=== PATIENT | female | born 1935 | race Caucasian/White ===

== ENCOUNTER 2018-11-02 10:26 | Inpatient (IN) | payer OTHER ==
[~2018-11-02] VITALS: Ht 170.2 cm; Wt 56.2 kg
[2018-11-02] MEDS ORDERED: SODIUM CHLORIDE FLUSH 10ML SYR IVF ONE (11:00)
[2018-11-02 11:11] LABS: BASOPHILS # (AUTO) 0.02 x10^3/uL (0-0.1); BASOPHILS % (AUTO) 1 % (0-1); EOSINOPHILS # (AUTO) 0.14 x10^3/uL (0-0.4); EOSINOPHILS % (AUTO) 3 % (1-7); LYMPHOCYTES # (AUTO) 1.19 x10^3/uL (1-3.4); LYMPHOCYTES % (AUTO) 23 % (22-44); MD NO; MEAN CORPUSCULAR HEMOGLOBIN 29.6 pg (27.0-34.8); MEAN CORPUSCULAR HGB CONC 32.9 g/dL (32.4-35.8); MEAN CORPUSCULAR VOLUME 90.1 fL (80-100); MEAN PLATELET VOLUME 9.7 fL (7.4-10.4); MONOCYTES # (AUTO) 0.33 x10^3/uL (0.2-0.8); MONOCYTES % (AUTO) 6 % (2-9); NEUTROPHILS # (AUTO) 3.49 x10^3/uL (1.8-6.8); NEUTROPHILS % (AUTO) 68 % (42-75); PLATELET COUNT 161 x10^3/uL (130-400); RED CELL DISTRIBUTION WIDTH 15.6 % (9.6-15.2)
[2018-11-02 11:14] LABS: ALANINE AMINOTRANSFERASE 9 U/L (12-78); ALBUMIN 2.8 g/dL (3.4-5.0); CALCIUM 7.9 mg/dL (8.5-10.1)
[2018-11-02 11:19] LABS: ALKALINE PHOSPHATASE 81 U/L (45-117); ANION GAP 5 mmol/L (5-15); BILIRUBIN,TOTAL 0.3 mg/dL (0.2-1.0); CHLORIDE 113 mmol/L (98-107); CREATININE 0.94 mg/dL (0.55-1.02); TOTAL PROTEIN 6.1 g/dL (6.4-8.2); TROPONIN I < 0.015 ng/mL (0.000-0.045)
[2018-11-02 12:34] LABS: MICROSCOPIC AUTO
[2018-11-02 12:35] LABS: CULTURE INDICATED? YES
[2018-11-02] MEDS ORDERED: SODIUM CHLORIDE FLUSH 10ML SYR IVF PRN (13:00)
[2018-11-02] MEDS ORDERED: CEFTRIAXONE PMX 1GM/50ML 50 ML IV ONE (13:00)
[2018-11-02] MEDS ORDERED: CEFTRIAXONE PMX 1GM/50ML 50 ML ONE (13:10)
[2018-11-02 14:19] VITALS: BP 110/67
[2018-11-02] MEDS ORDERED: hydrALAzine 20 MG/ML, 1ML IVPush PRN (15:30)
[2018-11-02] MEDS ORDERED: ACETAMINOPHEN 325 MG TABLET PO PRN (15:30)
[2018-11-02] MEDS ORDERED: morphine SULFATE 10 MG/ML, 1ML IVPush PRN (15:30)
[2018-11-02] MEDS ORDERED: ONDANSETRON 2MG/ML, 2ML IVPush PRN (15:30)
[2018-11-02] MEDS: HEPARIN 5,000 UNITS/ML, 1ML SQ SCH ×2 (15:30→23:30)
[2018-11-02] MEDS ORDERED: POLYETHYLENE GLYCOL 17 GM PACKET PO PRN (15:30)
[2018-11-02] MEDS ORDERED: SODIUM CHLORIDE 0.9% 1,000 ML IV SCH (15:30)
[2018-11-02] MEDS ORDERED: QUET25TA7 PO (16:23)
[2018-11-02] MEDS ORDERED: FLUO20CA8 PO (16:23)
[2018-11-02] MEDS ORDERED: QUET50TA PO (16:23)
[2018-11-02] MEDS ORDERED: DOCU-186 PO (16:23)
[2018-11-02] MEDS ORDERED: HALO0.5T PO ×2 (16:23)
[2018-11-02] MEDS ORDERED: ASPI-515 PO (16:23)
[2018-11-02] MEDS ORDERED: HALOPERIDOL 0.5 MG TABLET PO PRN (16:30)
[2018-11-02] MEDS ORDERED: HALOPERIDOL 0.5 MG TABLET PO SCH (16:30)
[2018-11-02] MEDS ORDERED: DOCUSATE 100 MG CAPSULE PO PRN (16:30)
[2018-11-02] MEDS ORDERED: HALOPERIDOL 2 MG/ML ORAL SOL PO PRN (17:00)
[2018-11-02] MEDS: SODIUM CHLORIDE 0.9% 1,000 ML IV SCH (18:01)
[2018-11-02 19:07] VITALS: BP 129/80
[2018-11-02] MEDS ORDERED: HALOPERIDOL 2 MG/ML ORAL SOL PO SCH (21:00)
[2018-11-02] MEDS: QUETIAPINE 25MG TABLET PO SCH (21:40)
[2018-11-02] MEDS: HALOPERIDOL 2 MG/ML ORAL SOL PO SCH (22:44)
[2018-11-03 01:10] VITALS: BP 119/72
[2018-11-03] MEDS: SODIUM CHLORIDE 0.9% 1,000 ML IV SCH ×2 (05:25→21:01)
[2018-11-03] MEDS: HALOPERIDOL 2 MG/ML ORAL SOL PO SCH ×4 (05:37→21:01)
[2018-11-03 05:45] LABS: BASOPHILS # (AUTO) 0.05 x10^3/uL (0-0.1); BASOPHILS % (AUTO) 1 % (0-1); EOSINOPHILS # (AUTO) 0.45 x10^3/uL (0-0.4); EOSINOPHILS % (AUTO) 7 % (1-7); LYMPHOCYTES # (AUTO) 2.62 x10^3/uL (1-3.4); LYMPHOCYTES % (AUTO) 43 % (22-44); MD NO; MEAN CORPUSCULAR HEMOGLOBIN 29.4 pg (27.0-34.8); MEAN CORPUSCULAR HGB CONC 32.7 g/dL (32.4-35.8); MEAN CORPUSCULAR VOLUME 89.8 fL (80-100); MEAN PLATELET VOLUME 9.5 fL (7.4-10.4); MONOCYTES # (AUTO) 0.44 x10^3/uL (0.2-0.8); MONOCYTES % (AUTO) 7 % (2-9); NEUTROPHILS % (AUTO) 41 % (42-75); PLATELET COUNT 163 x10^3/uL (130-400); RED BLOOD COUNT 3.83 x10^6/uL (3.82-5.3); RED CELL DISTRIBUTION WIDTH 15.9 % (9.6-15.2)
[2018-11-03 05:55] LABS: ALANINE AMINOTRANSFERASE 8 U/L (12-78); ALBUMIN 2.6 g/dL (3.4-5.0); ANION GAP 5 mmol/L (5-15); CHLORIDE 116 mmol/L (98-107)
[2018-11-03 05:57] LABS: ALKALINE PHOSPHATASE 78 U/L (45-117); BILIRUBIN,TOTAL 0.4 mg/dL (0.2-1.0); CREATININE 0.73 mg/dL (0.55-1.02); TOTAL PROTEIN 5.9 g/dL (6.4-8.2)
[2018-11-03 06:40] VITALS: BP 131/75
[2018-11-03] MEDS: ASPIRIN 81 MG TABLET EC PO SCH (08:07)
[2018-11-03] MEDS: FLUOXETINE HCL 20 MG CAPSULE PO SCH (08:07)
[2018-11-03] MEDS: QUETIAPINE 25MG TABLET PO SCH ×2 (08:08→20:56)
[2018-11-03] MEDS: HEPARIN 5,000 UNITS/ML, 1ML SQ SCH ×2 (08:11→16:57)
[2018-11-03 12:00] VITALS: BP 152/84
[2018-11-03] MEDS: CEFTRIAXONE PMX 1GM/50ML 50 ML IV SCH (12:39)
[2018-11-03 19:19] VITALS: BP 150/81
[2018-11-04] MEDS: HEPARIN 5,000 UNITS/ML, 1ML SQ SCH ×3 (01:00→15:36)
[2018-11-04 01:02] VITALS: BP 122/72
[2018-11-04] MEDS: HALOPERIDOL 2 MG/ML ORAL SOL PO SCH ×4 (05:45→21:11)
[2018-11-04 06:52] VITALS: BP 157/73
[2018-11-04] MEDS: ASPIRIN 81 MG TABLET EC PO SCH (07:57)
[2018-11-04] MEDS: QUETIAPINE 25MG TABLET PO SCH ×2 (07:58→21:12)
[2018-11-04] MEDS: SODIUM CHLORIDE 0.9% 1,000 ML IV SCH (07:58)
[2018-11-04] MEDS: FLUOXETINE HCL 20 MG CAPSULE PO SCH (07:58)
[2018-11-04 12:00] VITALS: BP 153/76
[2018-11-04] MEDS: CEFTRIAXONE PMX 1GM/50ML 50 ML IV SCH (12:28)
[2018-11-04 19:07] VITALS: BP 112/69
[2018-11-05] MEDS: HEPARIN 5,000 UNITS/ML, 1ML SQ SCH ×3 (01:00→16:07)
[2018-11-05 01:42] VITALS: BP 133/72
[2018-11-05] MEDS: HALOPERIDOL 2 MG/ML ORAL SOL PO SCH ×4 (06:24→20:36)
[2018-11-05 06:40] VITALS: BP 147/81
[2018-11-05] MEDS: ASPIRIN 81 MG TABLET EC PO SCH (08:16)
[2018-11-05] MEDS: FLUOXETINE HCL 20 MG CAPSULE PO SCH (08:16)
[2018-11-05] MEDS: QUETIAPINE 25MG TABLET PO SCH ×2 (08:16→20:36)
[2018-11-05 12:05] VITALS: BP 124/73
[2018-11-05] MEDS: CEFTRIAXONE PMX 1GM/50ML 50 ML IV SCH (12:14)
[2018-11-05 20:33] VITALS: BP 145/81
[2018-11-06] MEDS: HEPARIN 5,000 UNITS/ML, 1ML SQ SCH ×3 (00:42→17:00)
[2018-11-06 02:25] VITALS: BP 115/71
[2018-11-06] MEDS: HALOPERIDOL 2 MG/ML ORAL SOL PO SCH ×4 (05:39→20:13)
[2018-11-06 08:03] VITALS: BP 159/74
[2018-11-06] MEDS: FLUOXETINE HCL 20 MG CAPSULE PO SCH (09:31)
[2018-11-06] MEDS: ASPIRIN 81 MG TABLET EC PO SCH (09:31)
[2018-11-06] MEDS: QUETIAPINE 25MG TABLET PO SCH ×2 (09:31→20:12)
[2018-11-06 14:32] VITALS: BP 152/76
[2018-11-06] MEDS: CEFTRIAXONE PMX 1GM/50ML 50 ML IV SCH (16:21)
[2018-11-06 19:53] VITALS: BP 125/78
[2018-11-07] MEDS: HEPARIN 5,000 UNITS/ML, 1ML SQ SCH ×3 (00:03→17:07)
[2018-11-07 04:25] VITALS: BP 118/66
[2018-11-07] MEDS: HALOPERIDOL 2 MG/ML ORAL SOL PO SCH ×4 (06:02→20:41)
[2018-11-07 07:35] VITALS: BP 136/77
[2018-11-07] MEDS: FLUOXETINE HCL 20 MG CAPSULE PO SCH (09:40)
[2018-11-07] MEDS: QUETIAPINE 25MG TABLET PO SCH ×2 (09:40→20:41)
[2018-11-07] MEDS: ASPIRIN 81 MG TABLET EC PO SCH (09:40)
[2018-11-07 13:18] VITALS: BP 154/82
[2018-11-07] MEDS: CEFTRIAXONE PMX 1GM/50ML 50 ML IV SCH (14:50)
[2018-11-07 18:54] VITALS: BP 131/82
[2018-11-08] MEDS: HEPARIN 5,000 UNITS/ML, 1ML SQ SCH ×2 (01:09→09:23)
[2018-11-08 02:00] VITALS: BP 136/81
[2018-11-08] MEDS: HALOPERIDOL 2 MG/ML ORAL SOL PO SCH ×2 (05:37→11:37)
[2018-11-08 09:09] VITALS: BP 143/82
[2018-11-08] MEDS: ASPIRIN 81 MG TABLET EC PO SCH (09:23)
[2018-11-08] MEDS: QUETIAPINE 25MG TABLET PO SCH (09:23)
[2018-11-08] MEDS: FLUOXETINE HCL 20 MG CAPSULE PO SCH (09:23)
[2018-11-08] MEDS ORDERED: HEPA50002 SQ (10:26)
[2018-11-08] MEDS ORDERED: ERGO500017 PO (10:34)
== END 2018-11-08 12:25 | DRG 872 ==
LOC: ED 11:52 → EDIP 12:47 → 4EST 13:23
PROVIDERS: ADMIT Internal Medicine; ATTEND Internal Medicine
DX: A40.1 Sepsis due to streptococcus, group B (principal); E44.0 Moderate protein-calorie malnutrition; F01.51 Vascular dementia, unspecified severity, with behavioral disturbance; Z68.1 Body mass index [BMI] 19.9 or less, adult; Z66 Do not resuscitate; F32.9 Major depressive disorder, single episode, unspecified; M19.90 Unspecified osteoarthritis, unspecified site; R53.81 Other malaise; E03.9 Hypothyroidism, unspecified; I25.10 Atherosclerotic heart disease of native coronary artery without angina pectoris; N30.90 Cystitis, unspecified without hematuria; E78.00 Pure hypercholesterolemia, unspecified; I10 Essential (primary) hypertension; Z79.82 Long term (current) use of aspirin; Z80.0 Family history of malignant neoplasm of digestive organs; Z95.5 Presence of coronary angioplasty implant and graft; Z87.891 Personal history of nicotine dependence; Z90.710 Acquired absence of both cervix and uterus
CPT/HCPCS: 36415; 70450; 71045; 80053; 81001; 82306; 83735; 84100; 84443; 84484; 85025; 86850; 86900; 87040; 87086; 87147; 93005; 96374; 99285; G0378; J0696; J7030